=== PATIENT | female | born 1985 | race Caucasian/White ===

== ENCOUNTER → 2017-04-01 10:11 | Outpatient (CLI) | payer OTHER, MEDICAID, SELFPAY ==
[2017-04-01 11:26] LABS: Basophils % 0.2 % (0.1-2.0); Eosinophils # 0.2 K/mm3 (0.0-0.4); Eosinophils % 1.8 % (0.1-12.0); Hematocrit 38.8 % (37.0-47.0); Hemoglobin 12.3 g/dL (12.2-16.2); Lymphocytes # 3.3 K/mm3 (0.7-4.5); Lymphocytes % 30.4 K/mm3 (10-50); Mean Corpuscular HGB Conc 31.8 g/dL (31.8-35.4); Mean Corpuscular Hemoglobin 28.4 pg (27.0-31.2); Mean Corpuscular Volume 89.4 fl (81-99); Mean Platelet Volume 7.9 fl (7.4-10.4); Monocytes # 0.7 K/mm3 (0.1-1.0); Monocytes % 6.2 % (1.7-9.3); Neutrophils # 6.6 K/mm3 (1.8-7.8); Neutrophils % 61.4 % (37.0-80.0); Platelet Count 304 K/mm3 (142-424); Red Blood Count 4.34 M/mm3 (4.20-5.40); White Blood Count 10.8 K/mm3 (4.8-10.8)
[2017-04-02 08:27] LABS: HIV Screen 4th Generation wRfx Non Reactive (Non Reactive)
[2017-04-02 18:29] LABS: Hepatitis B Surface Antigen Negative (Negative); Hepatitis C Antibody <0.1 s/co ratio (0.0-0.9); Rapid Plasma Reagin Ab Titer Non Reactive (NonRea<1:1)
== END ==
PROVIDERS: Family Provider Nurse Practitioner Family; PCP Nurse Practitioner Family; Visit Provider Nurse Practitioner Obstetrics & Gynecology
DX: Z34.90 Encounter for supervision of normal pregnancy, unspecified, unspecified trimester (principal)
CPT/HCPCS: 36415; 85025; 86592; 86703; 86762; 86850; 87340; 87380; G0432

== ENCOUNTER → 2017-04-09 12:48 | Outpatient (CLI) | payer OTHER, MEDICAID, SELFPAY ==
--- NOTE | 2017-04-09 12:50 | US_ITS ---
US OB transvaginal CLINICAL INDICATION: Evaluate gestational age ITS.REASON: DATES ORDERING PHYSICIAN: Tom Oneill MD PATIENT AGE: 31 years COMPARISON: None FINDINGS: There is a single live intrauterine gestation with an average ultrasound age of 13 weeks 2 days. Estimated due date is 10/13/2017. Estimated weight is 72 g 90th percentile based on last menstrual period heart motion and body motion noted. Placenta is posterior. BPD 30 weeks 4 days, HC 13 weeks 1 day, abdominal recovers 13 weeks 4 days, FL 30 weeks 0 days. heart tones present at 136 BPM. [place]-rump length is 6.8 cm correlating to gestational age of 13 weeks 1 day Bilateral ovarian follicular cysts are present largest on the left at 2 cm which may be due to corpus luteum cyst IMPRESSION: Live intrauterine gestation at 13 weeks 2 days with estimated due date of 10/13/2017.
== END ==
PROVIDERS: Family Provider Nurse Practitioner Family; PCP Nurse Practitioner Family; Visit Provider Nurse Practitioner Obstetrics & Gynecology
DX: O26.841 Uterine size-date discrepancy, first trimester (principal)
CPT/HCPCS: 76830

== ENCOUNTER → 2017-05-28 13:27 | Outpatient (CLI) | payer BC, MEDICAID, SELFPAY ==
--- NOTE | 2017-05-28 13:36 | US_ITS ---
US OB /maternal detail: INDICATION: ITS.REASON: US OB Complete ORDERING PHYSICIAN: Tom Oneill MD PATIENT AGE: 31 years TECHNIQUE: ultrasound transabdominal scanning. COMPARISON: No previous relevant studies. FINDINGS: Single viable intrauterine gestation. cephalic position. Placenta: posterior placenta grade 1. There is average amount fluid. The cervix appears satisfactory. Closed and measuring 3 cm in length. Complete survey performed and was unremarkable on the submitted images as in PACS. No discrete anomalies identified on survey imaging by technologist. Active fetus. Three-vessel cord with satisfactory umbilical cord insertion. 4- chamber heart noted. Survey of brain & ventricles. Face and neck survey unremarkable. Diaphragm and chest views unremarkable. Abdomen: Both kidneys noted and unremarkable. Stomach noted and satisfactory. Spine: Survey of the spine satisfactory with no anomalies identified nor imaged. Both arms and legs noted. Amniotic Fluid: Adequate. Maternal adnexa: No significant findings. Measurements: Average ultrasound age 20w3d. Gestational Age 20w2d. Estimated due date by ultrasound age 0810/12/2017. Estimated weight 355 grams. This is 55th percentile based on last menstrual period BPD = 20w3d OFD = 20w5d HC = 19w6d AC = 20w4d FL = 20w4d Heart Rate = 139 Cerebellum = 19w3d Humerus = 21w4d HC/AC is 1.13 (1.09-1.26). CI is 77% (70-86%). FL/BPD is 71%. FL/AC is 22%. IMPRESSION: Live IUP which is in cephalic presentation with an average ultrasound age of 20 weeks and 3 days. Estimated due date is 10/12/2017. There has been adequate progression compared to the previous exam of 04/09/2017. No obvious anomalies. See above for detail
== END ==
PROVIDERS: Family Provider Nurse Practitioner Family; PCP Nurse Practitioner Family; Visit Provider Nurse Practitioner Obstetrics & Gynecology
DX: Z36.0 Encounter for antenatal screening for chromosomal anomalies (principal)
CPT/HCPCS: 76811

== ENCOUNTER 2017-07-12 08:53 | Outpatient (CLI) | payer BC, MEDICAID, SELFPAY ==
[2017-07-12 11:10] VITALS: BP 113/65; PULSE 82; RESP 18; TEMP 36.5
== END 2017-07-12 11:25 | disposition home or self-care (01) ==
LOC: LAB 08:53
PROVIDERS: Visit Provider Nurse Practitioner Obstetrics & Gynecology
DX: Z34.90 Encounter for supervision of normal pregnancy, unspecified, unspecified trimester (principal)
CPT/HCPCS: 36415; 96372; J2790

== ENCOUNTER → 2017-09-03 09:12 | Outpatient (CLI) | payer BC, MEDICAID, SELFPAY ==
--- NOTE | 2017-09-03 | US_ITS ---
US OB biophysical profile, US OB follow up, US SD Ratio umbilical artery: Indication: Large for gestational age, check position ITS.REASON: LGA and Check Position ORDERING PHYSICIAN: Tom Oneill MD PATIENT AGE: 32 years FINDINGS: There is a single live fetus present in the cephalic presentation. heart and body motion noted with an FHR 142 bpm . Average ultrasound age is 35 weeks 5 days. BPD 35 weeks 4 days. OFD 35 weeks 6 days. HC 35 weeks 2 days. Abdominal circumference 36 weeks 0 days. FL 35 weeks 6 days. All parameters correlate Estimated weight is 2762 g which is 85 percentile based on established due date of 10/13/2017 Amniotic fluid index: 14.6 Qualitative AFV: 2 breathing movements: 2 Gross body movements: 2 Tone: 2 Biophysical profile score: 88 Doppler evaluation of the umbilical artery: SD ratio: 2.4 Resistive index: 0.58 No obvious anomalies evident. Placenta: Posterior and grade 2. No evidence of previa Cervix: Appears closed and measures 3 cm IMPRESSION: Live IUP with an average ultrasound age of 35 weeks 5 days. All parameters correlate. The fetus is in cephalic presentation. Estimated weight is 2762 g which is 85th percentile. Physical profile 8 of 8 with unremarkable Doppler of the umbilical artery. Placenta is posterior and grade 2
== END ==
PROVIDERS: Family Provider Nurse Practitioner Family; PCP Nurse Practitioner Family; Visit Provider Nurse Practitioner Obstetrics & Gynecology
DX: O36.63X0 Maternal care for excessive fetal growth, third trimester, not applicable or unspecified (principal)
CPT/HCPCS: 76816; 76819; 76820

== ENCOUNTER → 2017-09-14 18:22 | Outpatient (REF) | payer BC, MEDICAID, SELFPAY | LOC: LAB 18:22 | PROVIDERS: Visit Provider Nurse Practitioner Obstetrics & Gynecology | DX: Z34.90 Encounter for supervision of normal pregnancy, unspecified, unspecified trimester (principal) | CPT/HCPCS: 86403 ==

== ENCOUNTER 2017-10-13 04:23 | Inpatient (IN) ==
[2017-10-13 05:38] LABS: Basophils % 0.1 % (0.1-2.0); Eosinophils # 0.2 K/mm3 (0.0-0.4); Eosinophils % 1.4 % (0.1-12.0); Hematocrit 33.6 % (37.0-47.0); Hemoglobin 11.1 g/dL (12.2-16.2); Lymphocytes # 2.7 K/mm3 (0.7-4.5); Lymphocytes % 22.9 K/mm3 (10-50); Mean Corpuscular HGB Conc 32.9 g/dL (31.8-35.4); Mean Corpuscular Hemoglobin 29.4 pg (27.0-31.2); Mean Corpuscular Volume 89.2 fl (81-99); Mean Platelet Volume 7.6 fl (7.4-10.4); Monocytes # 0.6 K/mm3 (0.1-1.0); Monocytes % 5.4 % (1.7-9.3); Neutrophils # 8.4 K/mm3 (1.8-7.8); Neutrophils % 70.3 % (37.0-80.0); Platelet Count 274 K/mm3 (142-424); Red Blood Count 3.77 M/mm3 (4.20-5.40); Red Cell Distribution Width 14.6 % (11.5-17.5); White Blood Count 11.9 K/mm3 (4.8-10.8)
--- NOTE | 2017-10-13 08:23 | History & Physical Report ---
OB - H&P: HPI Antepartum - History of Present Illness Chief complaint: Term History of present illness: She is a 32-year-old 2 para 1 who is 40 weeks gestational age. His been feeling unwell for the last couple of days and had decreased movement. As result of that we elected to deliver her at term. - History of Present Criteria for establishing EDC:: LMP confirmed by 1st trimester US care: good care Ultrasounds: normal 1st trimester US, normal mid trimester US Obstetrical complications: none Medical complications: none [facility] History I have reviewed the patient's past medical history: Yes Medical History: Denies:: Anxiety, Asthma, Depression Other Surgeries: No: Amputation: No Fractures: No - *Social History Smoking Status: Never smoker Alcohol Intake: never Substance Use Type: denies use - Psychiatric History Pschychiatric History:: Denies:: Anxiety, Depression *Family Hx:: Cancer, Diabetes, Hypertension, Hyperlipidemia, Heart Attack, Stroke, Kidney Disease Para: 1 Review of Systems - Review of Systems Review of systems:: pertinent systems reviewed and negative unless documented below Meds Home Medications Medication Instructions Recorded Confirmed Type 1 tab PO DAILY 04/01/17 10/13/17 History vitamin,calcium,svmrogyq-hjwh-kofvm acid tablet Ferrous Sulfate 325 mg PO DAILY 10/13/17 10/13/17 History Allergies Allergy/AdvReac Type Severity Reaction Status Date / Time No Known Allergies Allergy Verified 10/12/17 16:25 OB - H&P: Exam - Physical Exam Vital signs: Temp Pulse Resp BP Pulse Ox 98.2 F 70 18 132/67 98 10/13/17 05:35 10/13/17 05:35 10/13/17 05:35 10/13/17 05:35 10/13/17 05:35 - Constitutional no acute distress - Routine HEENT Exam Head: Present: normocephalic Eye: Present: EOMI, PERRL ENT: Present: mucous membranes moist - Routine Neck Exam Present: supple, full ROM - Routine Respiratory Exam Absent: accessory muscle use (good air entry bilaterally), respiratory distress , wheezes, crackles - Routine Cardiovascular Exam Present: RRR. Absent: murmur - Routine Abdominal Exam Present: soft, normoactive bowel sounds. Absent: tenderness, distended, guarding - Routine Rectal Exam Patient deferred: visual exam, digital exam - Routine Exam Patient deferred: external exam, groin exam, perineal exam - Routine Extremities Exam Present: full ROM. Absent: cyanosis, edema - Routine Skin Exam Present: intact. Absent: cyanosis - Routine Neurological Exam Present: alert, oriented X3 - Routine Psychiatric Exam Present: normal affect OB - Results - Labs Labs: Short CBC 10/13/17 Range/Units 05:30 WBC 11.9 H (4.8-10.8) K/mm3 Hgb 11.1 L (12.2-16.2) g/dL Hct 33.6 L (37.0-47.0) % Plt Count 274 (142-424) K/mm3 OB - A/P Antepartum (1) Normal delivery at term Current visit: Yes Status: Acute (2) Decreased movement affecting management of mother, antepartum Current visit: Yes Status: Acute (3) Obesity, morbid, BMI 40.0-49.9 Current visit: No Status: Chronic - Additional Plan Planning to breastfeed?: Yes Plan: induction Additional Information:: She is now 40 weeks gestational age and as result of that we have elected to induce her labor since she has decreased movement. We will start oxytocin and then ruptured her membranes. She did have an ultrasound this morning that showed that the fetus was in the cephalic presentation.
--- NOTE | 2017-10-13 09:22 | Progress Note ---
Labor Note - Subjective: Date: 10/13/17 Time: 08:45 regular contraction - Objective: NST:: Reactive Contractions:: every 2-3 minutes Cervical Dilation:: 2-3 Effacement:: 75% Station: -3 Membranes: artificially ruptured - Fetus: Monitoring?: Yes monitoring type:: Internal and External Comment:: I inserted an IUPC - Assessment: Labor progressing?: Yes Cephalopelvic disproportion?: No Patient Problems: All Active Problems Normal delivery at term (Acute) Decreased movement affecting management of mother, antepartum (Acute) Obesity, morbid, BMI 40.0-49.9 (Chronic) Rh negative status during in third trimester, antepartum (Acute) Large for dates fetus affecting in third trimester, antepartum (Acute) (Acute) - Plan: Anesthesia for epidural?: No Continue to labor down?: Yes Plan for ?: No Continue to monitor?: Yes Start pushing?: No
--- NOTE | 2017-10-13 11:55 | Progress Note ---
[facility] Anesthesia Checklist - Patient Identification Patient Identification: Arm Band, Verbal (Name & ) - Structural Data Admitted From: Inpatient Planned Operative Procedure/s: labor epidural Consent for Planned Operative Procedure(s) Verified: Yes Verified Documents: Surgical Consent, History and Physical - Additional verifications Patient : Yes Anesthesia Reactions: No Hx Blood Transfusions: No Blood Transfusion Reaction: No Cephalosporin Allergy: No Previous Colonoscopy: No - Cardiovascular Assessment Heart Sounds: S1 & S2 Pulse Strength: Baseline Pulse Rhythm: Regular Peripheral Edema: No - Airway Assessment C-Spine Mobility Assessed: Yes TMJ Mobility Assessed: Yes Dentition: Good Dentition - Neurological Assessment Level of Consciousness: Awake, Alert, Appropriate Hx Seizures: No Numbness or tingling in extremities: No - Anesthesia Plan Anesthesia Risk discussed: Yes Anesthesia Plan: Verified ASA Class: II Anesthesia Type: Epidural [facility] Anesthesia HX I have reviewed the patient's past medical history: Yes Medical History: Denies:: Anxiety, Asthma, Depression Other Surgeries: Yes: No Previous Surgery. No: Amputation: No Fractures: No *Family Hx:: Cancer, Diabetes, Hypertension, Hyperlipidemia, Heart Attack, Stroke, Kidney Disease
[2017-10-13 12:29] LABS: Microscopic, Urine URINE MICROSCOPIC (MICROSCOPIC)
[2017-10-13 12:41] LABS: Appearance,Urine CLEAR (Clear); Bilirubin,Urine Negative (Negative); Blood, Urine Negative (Negative); Color,Urine YELLOW (Yellow); Glucose,Urine (UA) Negative (Negative); Ketones,Urine Negative (Negative); Leukocyte Esterase,Urine Negative (Negative); Protein,Urine Negative (Negative); Specific Gravity, Urine 1.015 (1.005-1.030); Urobilinogen,Urine 0.2 EU/dl (0.2)
[2017-10-13 13:00] LABS: Bacteria,Urine Trace /lpf
--- NOTE | 2017-10-13 13:37 | Progress Note ---
Labor Note - Subjective: Date: 10/13/17 Time: 11:30 regular contraction - Objective: NST:: Reactive Contractions:: every 2-3 minutes Cervical Dilation:: 3 Effacement:: 80% Station: -3 Membranes: artificially ruptured - Fetus: Monitoring?: Yes monitoring type:: Internal Comment:: I put on a scalp clip - Assessment: Labor progressing?: No Cephalopelvic disproportion?: No Patient Problems: All Active Problems Normal delivery at term (Acute) Decreased movement affecting management of mother, antepartum (Acute) Obesity, morbid, BMI 40.0-49.9 (Chronic) Rh negative status during in third trimester, antepartum (Acute) Large for dates fetus affecting in third trimester, antepartum (Acute) (Acute) - Plan: Anesthesia for epidural?: Yes Continue to labor down?: Yes Plan for ?: No Continue to monitor?: Yes Start pushing?: No
--- NOTE | 2017-10-13 13:38 | Progress Note ---
Labor Note - Subjective: Date: 10/13/17 Time: 13:37 regular contraction - Objective: Contractions:: every 2-3 minutes Cervical Dilation:: 3 Effacement:: 80% Station: -3 Membranes: artificially ruptured - Fetus: Monitoring?: Yes monitoring type:: Internal - Assessment: Labor progressing?: No Cephalopelvic disproportion?: Yes Patient Problems: All Active Problems Normal delivery at term (Acute) Decreased movement affecting management of mother, antepartum (Acute) Obesity, morbid, BMI 40.0-49.9 (Chronic) Rh negative status during in third trimester, antepartum (Acute) Large for dates fetus affecting in third trimester, antepartum (Acute) (Acute) - Plan: Anesthesia for epidural?: Yes Continue to labor down?: Yes Plan for ?: Yes Continue to monitor?: Yes Start pushing?: No Comment:: She really has not progressed much all day. We will see how she does over the next few hours but if she does not change her cervix we will plan for a C- section.
--- NOTE | 2017-10-13 17:19 | Progress Note ---
Labor Note - Subjective: Date: 10/13/17 Time: 17:18 regular contraction - Objective: NST:: Reactive Contractions:: every 2-3 minutes Cervical Dilation:: 5 Effacement:: 100% Station: -2 Membranes: artificially ruptured - Fetus: Monitoring?: Yes monitoring type:: Internal - Assessment: Labor progressing?: Yes Cephalopelvic disproportion?: No Patient Problems: All Active Problems Normal delivery at term (Acute) Decreased movement affecting management of mother, antepartum (Acute) Obesity, morbid, BMI 40.0-49.9 (Chronic) Rh negative status during in third trimester, antepartum (Acute) Large for dates fetus affecting in third trimester, antepartum (Acute) (Acute) - Plan: Anesthesia for epidural?: Yes Continue to labor down?: Yes Plan for ?: No Continue to monitor?: Yes Start pushing?: No Comment:: She seems to have progressed over the afternoon from 3-5 cm the baby's head is comedown. She is having regular contractions. The baby seems to be tolerating labor well. We will continue on.
--- NOTE | 2017-10-13 20:12 | Procedure Note ---
- Delivery Note Delivery Date:: 10/13/17 Delivery Time:: 19:56 Anesthesia Type: Epidural Was labor medically induced?: Yes Induction method: per pitocin protocol Gestational age (weeks): 40 Infant delivered prior to 39 weeks?: No Infant Gender: Female at 1 minute: 6 at 5 minutes: 9 AF:: Clear fluid Delivery Procedure:: She is a 32-year-old 2 para 1 who is 40 weeks gestational age. She had decreased movement and since she was term we elected to perform an induction of labor. She was started on IV oxytocin and had her membranes ruptured. Under labor epidural she progressed to full dilation and delivered spontaneously a live born female child at 7:56 PM in the evening of October 13, 2017. On deliver the head it was noted there was a loose nuchal cord 2. These cords were easily reduced. This was followed by deliver the anterior shoulder and the rest of the infant's body atraumatically. The oropharynx and nasopharynx were bulb suctioned. The baby cried spontaneously. We allow the cord to continue to pulsate for approximately 1 minute and then doubly clamped the cord and cut it. The baby was then placed on the mother's abdomen for further care. The nurses assigned Apgars of 6 at 1 minute and 9 at 5 minutes. We then obtained cord blood as well as cord pH. Using gentle traction the cord and countertraction on the fundus I was able to easily deliver the placenta intact. He had a normal three-vessel cord. There were no vaginal or perineal lacerations. She has O Rh- blood, she is rubella immune and was group B Streptococcus negative. Her medical laboratory scientist is Dr. Sosa. Estimated blood loss was approximately 400 cc. Placental Delivery Description: Spontaneous
[2017-10-14 07:28] LABS: Hematocrit 31.6 % (37.0-47.0); Hemoglobin 10.4 g/dL (12.2-16.2)
--- NOTE | 2017-10-14 08:06 | Progress Note ---
Internal Medicine - PN: Subj *Date: 10/14/17 *Time: 08:05 Interval history: She continues to do well this morning. She is eating and drinking and ambulating. She is bottlefeeding. Her lochia is normal. Exam Vital signs and Labs for Last 24 Hours: Temp Pulse Resp BP Pulse Ox 98.2 F 70 18 132/67 98 10/13/17 05:35 10/13/17 05:35 10/13/17 05:35 10/13/17 05:35 10/13/17 05:35 Laboratory Results - last 24 hr 10/13/17 12:20: Urine Color Yellow, Urine Appearance Clear, Urine pH 7.0, Ur Specific [place] 1.015, Urine Protein Negative, Urine Glucose (UA) Negative, Urine Ketones Negative, Urine Blood Negative, Urine Nitrate Negative, Urine Bilirubin Negative, Urine Urobilinogen 0.2, Ur Leukocyte Esterase Negative, Urine RBC None, Urine WBC None, Ur Squamous Epith Cells 5-10, Urine Bacteria Trace 10/13/17 20:10: Cord ABG pH 7.37 10/14/17 07:18: Hgb 10.4 L, Hct 31.6 L I & O for Last 24 hours: Intake & Output 10/11/17 10/12/17 10/13/17 10/14/17 11:59 11:59 11:59 11:59 Weight 263 lb - Constitutional no acute distress Assessment and Plan (1) Normal delivery at term Current visit: Yes Status: Acute Category: Medical Code(s): O80 - Encounter for full-term uncomplicated delivery (2) Decreased movement affecting management of mother, antepartum Current visit: Yes Status: Acute Category: Medical Code(s): O36.8190 - Decreased movements, unspecified trimester, not applicable or unspecified (3) Obesity, morbid, BMI 40.0-49.9 Current visit: No Status: Chronic Category: Medical Code(s): E66.01 - Morbid (severe) obesity due to excess calories - Assessment and plan all Dx Assessment and Plan for all problems:: She is doing well this morning . We will plan to send her home tomorrow.
--- NOTE | 2017-10-14 08:19 | Discharge Summary ---
General - General Admission date:: 10/13/17 Discharge date: 10/15/17 HPI HPI: She is a 32-year-old 2 now para 2 who was she was having some decreased movement. Since she was due we elected to admit her for induction of labor. Hospital Course Hospital Course: She was started on IV oxytocin and progressed to full dilation under labor epidural. She delivered spontaneously a live born female child at 7:56 PM in the evening of October 14, 2017. The baby had Apgars of 6 at 1 minute and 9 at 5 minutes. PH was 7.37. She weighed 8 lbs. 7 oz. She was 20 inches long. She has done well and has remained afebrile throughout her hospitalization. She is eating and drinking and ambulating. She is bottlefeeding. Her lochia is normal. She has O Rh- blood and was group B Streptococcus negative. If her baby is Rh+ she will receive RhoGam. She is discharged home to follow-up with me in approximately 2 weeks time. She is just taking xdig-rbi-rbtfimk analgesics for discomfort. She will continue with her vitamins. Objective Vital signs: Temp Pulse Resp BP Pulse Ox 98.2 F 70 18 132/67 98 10/13/17 05:35 10/13/17 05:35 10/13/17 05:35 10/13/17 05:35 10/13/17 05:35 no acute distress Results Labs on day of discharge: Labs from last 24 hours 10/14/17 10/13/17 10/13/17 07:18 20:10 12:20 Hgb 10.4 L Hct 31.6 L Cord ABG pH 7.37 Urine Color Yellow Urine Appearance Clear Urine pH 7.0 Ur Specific [place] 1.015 Urine Protein Negative Urine Glucose (UA) Negative Urine Ketones Negative Urine Blood Negative Urine Nitrate Negative Urine Bilirubin Negative Urine Urobilinogen 0.2 Ur Leukocyte Esterase Negative Urine RBC None Urine WBC None Ur Squamous Epith Cells 5-10 Urine Bacteria Trace DS: Diagnosis - Discharge Diagnosis (1) Normal delivery at term Status: Acute (2) Decreased movement affecting management of mother, antepartum Status: Acute (3) Obesity, morbid, BMI 40.0-49.9 Status: Chronic Discharge Plan - Patient Discharge Instructions ACTIVITY: No heavy lifting DIET: continue same diet - Follow up Plan Disposition: Home, Self-Fdc Medications: Home Medications Medication Instructions Recorded Confirmed Type 1 tab PO DAILY 04/01/17 10/13/17 History vitamin,calcium,ykrysysx-vnwu-lrumy acid tablet Ferrous Sulfate 325 mg PO DAILY 10/13/17 10/13/17 History Prescriptions/Medication Reconciliation: Continue vitamin,calcium,caxsogty-gsgj-xjgwv acid tablet 1 tab PO DAILY Ferrous Sulfate 325 mg PO DAILY
--- NOTE | 2017-10-14 09:42 | Operative Note ---
Date of procedure: 10/14/17 Surgeon:: Nadia Pandya MD
[2017-10-14 21:13] VITALS: BP 112/80
--- NOTE | 2017-10-15 13:03 | Progress Note ---
Internal Medicine - PN: Subj *Date: 10/15/17 *Time: 11:52 Interval history: No new complaints Ready for discharge Ambulating, voiding and tolerating regular diet Exam Vital signs and Labs for Last 24 Hours: Temp Pulse Resp BP Pulse Ox 97.7 F 63 18 112/80 100 10/14/17 20:05 10/14/17 20:05 10/14/17 20:05 10/14/17 20:05 10/14/17 20:05 I & O for Last 24 hours: Intake & Output 10/13/17 10/14/17 10/15/17 10/16/17 11:59 11:59 11:59 11:59 Weight 263 lb - Constitutional no acute distress - *Routine Respiratory Exam Absent: respiratory distress - *Routine Cardiovascular Exam Absent: tachycardia - *Routine Abdominal Exam Present: soft. Absent: tenderness, distended - Routine Psychiatric Exam Absent: depressed, anxious Assessment and Plan (1) Normal delivery at term Current visit: Yes Status: Acute Category: Medical Code(s): O80 - Encounter for full-term uncomplicated delivery (2) Decreased movement affecting management of mother, antepartum Current visit: Yes Status: Acute Category: Medical Code(s): O36.8190 - Decreased movements, unspecified trimester, not applicable or unspecified (3) Obesity, morbid, BMI 40.0-49.9 Current visit: No Status: Chronic Category: Medical Code(s): E66.01 - Morbid (severe) obesity due to excess calories - Assessment and plan all Dx Assessment and Plan for all problems:: discharge home today F/u office [address] Oneill
== END 2017-10-15 12:40 | disposition home or self-care (01) ==
LOC: OB 04:58
PROVIDERS: ADMIT Nurse Practitioner Obstetrics & Gynecology; ATTEND Nurse Practitioner Obstetrics & Gynecology

== ENCOUNTER 2021-04-06 11:13 | Emergency (ER) | payer BC, MEDICAID, SELFPAY ==
[2021-04-06 11:34] VITALS: BP 140/99; PULSE 88; RESP 16; TEMP 36.8; O2SAT 97; BMI 41.5
[2021-04-06 11:42] LABS: UTC Strep Screen (Rapid) Negative (Negative)
--- NOTE | 2021-04-06 11:57 | HMH.EDUTC ---
[facility] Disposition Clinical Impression: Viral syndrome, Exposure to COVID-19 virus, Bronchitis Disposition: Home, Self-Care Condition on Discharge: Good Instructions: Preventing the Spread of Coronavirus Discharge Instructions, DI for COVID-19 (Suspected or Confirmed ), DI for Acute Bronchitis, Acute Bronchitis Additional Instructions: Drink plenty of fluids. Take tylenol or ibuprofen for pain or fever. Take the medications as directed. Follow up with your regular doctor. GO TO THE ER FOR ANY WORSENING SYMPTOMS Quarantine until you know the results of your covid-19 test. Notify your school or workplace of your results and follow their instructions regarding return to work/school. Prescriptions: Brompheniramine/Pseudoephed/Dm [Bromfed Dm Cough Syrup] 5 ml PO Q6HP PRN #240 ml PRN Reason: Cough Transmission Status: Pending to [facility] Ondansetron [Zofran 4mg ODT] 4 mg PO Q8HP PRN #20 tab PRN Reason: Nausea Transmission Status: Pending to [facility] methylPREDNISolone [Medrol] 4 mg PO DIRECTED 6 Days #21 packet Transmission Status: Pending to [facility] Azithromycin [Z-Jose 250mg Tab*] 250 mg PO UD DOSE PK #6 tab Transmission Status: Pending to [facility] Referrals: Tamika Napier APRN [Primary Care Provider] - Forms: Work/School Release Time of Disposition: 12:32 Medical Decision Making - Medical Records Medical records reviewed: No: I reviewed the patient's medical records. - Hieu Inquiry Pt receiving controlled substance: No Vital Signs: 04/06/21 11:34 Temperature 98.3 F Temperature Source Oral Pulse Rate [Left] 88 Respiratory Rate 16 Blood Pressure [Right Arm] 140/99 H Blood Pressure Mean [Right Arm] 112 02 Sat by Pulse Oximetry 97 - Lab Data Lab results reviewed: Yes: I reviewed the patient's lab results. Lab Results 04/06/21 11:31: Strep Scn Rapid Clinic Negative Orders (Tests/Meds): ORDERS Category Date Time Status Full Resp Panel w/COVID ([facility]) Routine Lab 04/06/21 12:27 Ordered Strep Screen Confirmation Stat Micro 04/06/21 11:31 Received [facility] HPI - General Stated complaint: sore throat,cough,headache, etc Time Seen by Provider: 04/06/21 11:57 Description of Symptoms (Recalled from Triage Doc. by RN): pt c/o a sore throat, cough and WEST x3 days. HEENT Symptoms (Recalled from RN notes): Yes (sore throat and WEST) Resp Symptoms (Recalled from RN notes): Yes (cough) Skin Symptoms (Recalled from RN notes): No MS Symptoms (Recalled from RN notes): No Functional Status (Recalled from RN notes): wnl - History of Present Illness Provider Complaint: She states that for the past 3 days she has had sore throat, sinus congestion, nonproductive cough and she has felt bad. She works with preschool students. She has been fully vaccinated against covid-19. - Related Data Home Medications Medication Instructions Recorded Confirmed hydrocodone 7.5 mg-acetaminophen PO 4 Days #20 tab 12/06/17 12/06/17 325 mg tablet Previous Rx's Medication Instructions Recorded Azithromycin [Z-Jose 250mg Tab*] 250 mg PO UD DOSE PK #6 tab 04/06/21 Brompheniramine/Pseudoephed/Dm 5 ml PO Q6HP PRN #240 ml 04/06/21 [Bromfed Dm Cough Syrup] Ondansetron [Zofran 4mg ODT] 4 mg PO Q8HP PRN #20 tab 04/06/21 methylPREDNISolone [Medrol] 4 mg PO DIRECTED 6 Days #21 04/06/21 packet Allergies Allergy/AdvReac Type Severity Reaction Status Date / Time No Known Allergies Allergy Verified 12/06/17 14:08 - Worker's Comp Is this a Worker's Comp case?: No [facility] History - Hepatitis A Screen Drug use history?: No High risk sexual behaviors?: No History of sexually transmitted infection?: No Currently employed?: No Childcare worker?: No Do you have indoor plumbing?: Yes Do you have electricity?: Yes Attestation statement:: This patient has been screened for Hepatitis A risk factors. I have reviewed th
[2021-04-06 12:32] VITALS: BP 140/99; PULSE 88; RESP 16; TEMP 36.8
[2021-04-06 14:03] LABS: Adenovirus,PCR Not Detected (NotDetected); Bordetella Pertussis Not Detected (NotDetected); Chlamydophila Pneumoniae, PCR Not Detected (NotDetected); Coronavirus 19, PCR Not Detected (NotDetected); Coronavirus 229E Not Detected (NotDetected); Coronavirus NL63 Not Detected (NotDetected); Coronovirus HKU1,PCR Not Detected (NotDetected); Human Metapneumovirus Not Detected (NotDetected); Influenza A, PCR Not Detected (NotDetected); Influenza AH1, 2009 Not Detected (NotDetected); Influenza AH1, PCR Not Detected (NotDetected); Influenza AH3,PCR Not Detected (NotDetected); Influenza B, PCR Not Detected (NotDetected); Mycoplasma Pneumoniae, PCR Not Detected (NotDetected); Parainfluenza 1, PCR Not Detected (NotDetected); Parainfluenza 2, PCR Not Detected (NotDetected); Parainfluenza 3, PCR Not Detected (NotDetected); Parainfluenza 4, PCR Not Detected (NotDetected); Respiratory Syncytial Virus Not Detected (NotDetected); Rhinovirus/Enterovirus Not Detected (NotDetected)
[2021-04-06 15:35] LABS: Coronavirus OC43 Detected (NotDetected)
== END 2021-04-06 12:46 | disposition home or self-care (01) ==
PROVIDERS: Emergency Provider Nurse Practitioner Family; PCP Nurse Practitioner
DX: B34.2 Coronavirus infection, unspecified (principal); J20.9 Acute bronchitis, unspecified
CPT/HCPCS: 87581; 87632; 87798; 87880; 99203; C9803; G0463; U0003; U0005

== ENCOUNTER 2022-12-18 20:22 | Emergency (ER) | payer BC, MEDICAID, SELFPAY ==
[2022-12-18 20:31] VITALS: BP 167/92; PULSE 90; RESP 18; TEMP 36.7; O2SAT 97; BMI 39.1
[2022-12-18 20:36] VITALS: BP 167/92; PULSE 90
--- NOTE | 2022-12-18 20:54 | HMH.EDGENADL ---
Discharge Plan Disposition Patient Disposition: Home, Self-Care Prescriptions Prescriptions: New cephalexin 500 mg capsule 1,000 mg PO BID 5 Days Qty: 20 0RF Referrals Follow up/Referrals: Julia Napier PA [Primary Care Provider] - See instructions Activity Restrictions/Add. Instructions Additional Instructions/Restrictions: Call your family doctor to establish care for this visit to the emergency department and schedule follow-up within 48 hours to ensure improvement. If you have any worsening of your condition or any other concerning signs or symptoms, return to the emergency department or your primary care doctor for further evaluation. Keflex twice daily for 5 days Clinical Impressions Clinical Impression: Cellulitis of right upper arm Discharge ED Provider: Sachin Benavides General Adult HPI General Chief complaint: Allergic Reaction Stated complaint: right arm rash and swelling Time Seen by Provider: 12/18/22 20:33 Mode of Arrival: Ambulatory Source of Information: Patient Limitations: No Limitations Description of Symptoms (Recalled from ER Triage Doc. by RN): potentially got bit by unknown insect two days ago on right upper arm, noticed a rash that is warm to touch, itching and burning, states the rash keeps spreading down arm History of Present Illness HPI narrative: 37-year-old female no relevant medical history presenting with arm redness and swelling. Patient states that 2 days prior to arrival, she sustained a small cut to the back of her right upper arm. Does not remember the trauma to, does not know if it was a bug bite or not. Since that time, she has been taking Benadryl and putting Benadryl cream on top of it. It has continued to spread, turned red and warm. No fevers or chills, nausea or vomiting, axillary swelling, lymphadenopathy, chest pain, shortness of breath, or any other concerns. No history of DVT or PE or any other risk factors. Related Data Previous Rx's Medication Instructions Recorded cephalexin 500 mg capsule 1,000 mg PO BID 5 days #20 caps 12/18/22 Allergies Allergy/AdvReac Type Severity Reaction Status Date / Time No Known Allergies Allergy Verified 12/06/17 14:08 [facility] Disclaimer: The information contained in this section may have been updated after the patient was seen, as this information can be updated by other users. Social History Smoking Status: Never smoker alcohol intake: never substance use type: denies use current occupational status: employed Travel in the last 8 weeks: None household members: spouse housing: house current occupation: teachers aid current occupational exposures/hazards: Yes caffeine: Yes ROS Obtained: Yes All systems reviewed & no additional complaints except as documented Physical Exam General General appearance: alert and in no apparent distress Head Head exam: atraumatic and normocephalic Eye Eye exam: Present normal appearance, PERRL and EOMI ENT ENT exam: Present mucous membranes moist Neck Neck exam: Present normal inspection, full ROM and trachea midline Respiratory Respiratory exam: Absent respiratory distress, wheezes, stridor, accessory muscle use or prolonged expiratory phase Cardiovascular Cardiovascular exam: Present normal rhythm Abdominal Exam Abdominal exam: Present soft; Absent distention, tenderness, guarding, rebound, rigidity or normal bowel sounds Extremities Exam Extremities exam: Absent edema Neurological Exam Neurological exam: Present alert, oriented X3, CN II-XII intact and normal gait; Absent motor sensory deficit Skin Skin exam: Present warm, dry, rash and erythema (Rash, induration, erythema starting at posterior aspect of right humerus and spreading distally/medially. Mildly tender to the touch. No evidence of lymphadenopathy of the axilla); Absent diaphoresis Medical Decision Making Medical Records Medical records reviewed: Yes I reviewed the patient's medi
[2022-12-18 21:09] VITALS: BP 167/98; PULSE 85; RESP 16; TEMP 36.9; O2SAT 97
== END 2022-12-18 21:12 | disposition home or self-care (01) ==
PROVIDERS: Emergency Provider Emergency Medicine; PCP Physician Assistant
DX: L03.113 Cellulitis of right upper limb (principal)
CPT/HCPCS: 99283

== ENCOUNTER 2023-02-19 21:07 | Emergency (ER) | payer BC, MEDICAID, SELFPAY ==
[2023-02-19 21:16] VITALS: BP 166/90; PULSE 76; RESP 16; TEMP 36.6; O2SAT 96; BMI 40.7
--- NOTE | 2023-02-19 21:21 | PC.NURSE ---
urine collected and sent to lab
[2023-02-19 21:27] LABS: Microscopic, Urine URINE MICROSCOPIC (MICROSCOPIC)
--- NOTE | 2023-02-19 21:27 | HMH.EDGENADL ---
Discharge Plan Disposition Patient Disposition: Home, Self-Care Chief Complaint: Abdominal Pain Prescriptions Prescriptions: No Action No Known Home Medications Referrals Follow up/Referrals: Tamika Napier APRN [Primary Care Provider] - See instructions Activity Restrictions/Add. Instructions Additional Instructions/Restrictions: Call your family doctor to establish care for this visit to the emergency department and schedule follow-up within 48 hours to ensure improvement. If you have any worsening of your condition or any other concerning signs or symptoms, return to the emergency department or your primary care doctor for further evaluation. Take Tylenol 1000 mg every 6 hours (4 times daily) and ibuprofen 400 mg every 6 hours (4 times daily) as needed with food and water to prevent GI upset and kidney damage. Clinical Impressions Clinical Impression: Abdominal pain Qualifiers: Abdominal location: right upper quadrant Qualified Code(s): R10.11 - Right upper quadrant pain Instructions Patient Instructions: DI for Acute Abdominal Pain Discharge ED Provider: Sachin Benavides General Adult HPI General Chief complaint: Abdominal Pain Stated complaint: abd pain Time Seen by Provider: 02/19/23 21:10 Mode of Arrival: Family Vehicle Source of Information: Patient Limitations: No Limitations Description of Symptoms (Recalled from ER Triage Doc. by RN): 37 yo female presents with CC worsening right flank pain that was present upon awakening this morning and since has began radiating through her right upper quadrant and increasing in intensity throughout the day. specifically more so in the last 3 hours. Patient denies n/v/d. Denies constipation. Denies dysuria. LMP: 3 weeks ago. Denies vaginal dc, new sexual partners, recent antibiotic use/new meds. Afebrile. Ambulatory. A&ox4. History of Present Illness HPI narrative: 37-year-old female history of tubal ligation presenting with abdominal pain. Started today, 02/19 when she woke up from sleep. Has had crescendo pain since that time. It is stabbing, radiates from right upper quadrant to right side of back. Pain associated with nausea without vomiting. Patient has not had constipation, diarrhea, fevers or chills, urinary symptoms, overlying skin changes, or any other concerns. Has taken Tylenol and Motrin. Pain is nonpositional. Related Data Home Medications Medication Instructions Recorded Confirmed No Known Home Medications 02/19/23 02/19/23 Allergies Allergy/AdvReac Type Severity Reaction Status Date / Time No Known Allergies Allergy Verified 12/06/17 14:08 [facility] Disclaimer: The information contained in this section may have been updated after the patient was seen, as this information can be updated by other users. Social History Smoking Status: Unknown if ever smoked alcohol intake: never substance use type: denies use current occupational status: employed Travel in the last 8 weeks: None household members: spouse housing: house current occupation: teachers aid current occupational exposures/hazards: Yes caffeine: Yes ROS Obtained: Yes All systems reviewed & no additional complaints except as documented Physical Exam General General appearance: alert and in no apparent distress Head Head exam: atraumatic and normocephalic Eye Eye exam: Present normal appearance, PERRL and EOMI ENT ENT exam: Present mucous membranes moist Neck Neck exam: Present normal inspection, full ROM and trachea midline Respiratory Respiratory exam: Absent respiratory distress, wheezes, stridor, accessory muscle use or prolonged expiratory phase Cardiovascular Cardiovascular exam: Present normal rhythm Abdominal Exam Abdominal exam: Present soft, tenderness and Rodriguez's sign; Absent distention, guarding, rebound, rigidity or normal bowel sounds Abdominal tenderness: Present RUQ Extremities Exam Extremities exam: Absent edema Ne
[2023-02-19 21:28] LABS: Appearance,Urine CLEAR (Clear); Bilirubin,Urine Negative (Negative); Blood, Urine 1+ (Negative); Color,Urine YELLOW (Yellow); Glucose,Urine (UA) TRACE (Negative); Ketones,Urine Negative (Negative); Leukocyte Esterase,Urine Negative (Negative); Nitrate,Urine Negative (Negative); PH,Urine 6.5 (5.0-8.5); Protein,Urine TRACE (Negative); Specific Gravity, Urine >= 1.030 (1.005-1.030)
[2023-02-19 21:29] LABS: Urine Pregnancy, HCG Qual. Negative (Negative)
[2023-02-19 21:31] LABS: Basophils # 0.1 K/mm3 (0-0.2); Basophils % 0.7 % (0.1-2.0); Eosinophils # 0.4 K/mm3 (0.0-0.4); Eosinophils % 3.2 % (0.1-12.0); Hematocrit 37.3 % (37.0-47.0); Lymphocytes # 4.4 K/mm3 (0.7-4.5); Lymphocytes % 34.1 % (10-50); Mean Corpuscular HGB Conc 32.2 g/dL (31.8-35.4); Mean Corpuscular Hemoglobin 26.1 pg (27.0-31.2); Mean Platelet Volume 8.3 fl (7.4-10.4); Monocytes # 0.7 K/mm3 (0.1-1.0); Monocytes % 5.4 % (1.7-9.3); Neutrophils # 7.2 K/mm3 (1.8-7.8); Neutrophils % 56.5 % (37.0-80.0); Platelet Count 384 K/mm3 (142-424); Red Cell Distribution Width 15.8 % (11.5-17.5); White Blood Count 12.7 K/mm3 (4.8-10.8)
[2023-02-19 21:34] LABS: Chloride 106 mmol/L (98-107); Sodium 140 mmol/L (136-145)
[2023-02-19 21:35] LABS: Potassium 3.3 mmoL/L (3.5-5.1)
[2023-02-19 21:37] LABS: Alanine Aminotransferase 51 U/L (12-78); Albumin Level 4.4 g/dl (3.5-5.0); Albumin/Globulin Ratio 1.3 (1.1-1.8); Alkaline Phosphatase 76 U/L (38-126); Anion Gap 8.3 mEq/L (5-15); Aspartate Amino Transferase 63 U/L (14-36); Bilirubin,Total 0.4 mg/dl (0.2-1.3); Blood Urea Nitrogen 16 mg/dl (7-17); Calcium 8.4 mg/dl (8.4-10.2); Carbon Dioxide 29 mmol/L (22.0-30.0); Creatinine Clearance Estimated 161 mL/min (50-200); Estimated Glomerular Filt Rate 71 ml/min (>60); GFR (African American) 86 ML/MIN (>60); Globulin 3.5 g/dL (1.3-3.2); Glucose 104 mg/dl (74-100); Lipase 75 U/L (23-300); Total Protein,Serum 7.9 g/dl (6.3-8.2)
[2023-02-19 21:38] LABS: Lactic Acid 0.8 mmol/L (0.7-2.1)
[2023-02-19 21:42] LABS: Mucus,Urine 1+ /lpf
[2023-02-19 21:49] VITALS: BP 136/84; PULSE 82; RESP 20; O2SAT 97
--- NOTE | 2023-02-19 21:53 | PC.NURSE ---
rounded on patient, pillow given and lights turned down
--- NOTE | 2023-02-19 22:06 | CT_ITS ---
PROCEDURE INFORMATION: Exam: CT Abdomen And Pelvis With Contrast Exam date and time: 02/19/2023 10:19 PM Age: 37 years old Clinical indication: Abdominal pain; Additional info: Ruq pain radiating to flank, difficult ultrasound TECHNIQUE: Imaging protocol: Computed tomography of the abdomen and pelvis with contrast. Radiation optimization: All CT scans at this facility use at least one of these dose optimization techniques: automated exposure control; mA and/or kV adjustment per patient size (includes targeted exams where dose is matched to clinical indication); or iterative reconstruction. Contrast material: ISOVUE; Contrast volume: 75 ml; Contrast route: IV; REPORTING DATA: Count of CT and Cardiac NM exams in prior 12 months: This patient has received 0 known CTs and 0 known cardiac nuclear medicine studies in the 12 months prior to the current study. COMPARISON: 1. OBLM US OB limited position 10/13/2017 6:12 AM 2. OBBIO US OB biophysical profile 09/03/2017 9:16 AM 3. OBFEMAT US OB /maternal detail 05/28/2017 1:59 PM FINDINGS: Liver: There is diffuse fatty infiltration throughout the liver. Gallbladder and bile ducts: The gallbladder is collapsed. Pancreas: The pancreas is of normal size and morphology, without evidence of masses, cysts, or calcifications. The pancreatic duct is not dilated. Spleen: The spleen is normal in size and attenuation. No splenic masses or cysts are observed. Adrenal glands: The adrenal glands appear normal. Kidneys and ureters: There is mild fullness of the left renal collecting system without patty hydronephrosis or distal ureteral obstruction. Stomach and bowel: The stomach, small bowel, and colon are well-distended and show no evidence of wall thickening, masses, or obstruction. Appendix: No evidence of appendicitis. Intraperitoneal space: There is a small volume of free fluid in the pelvis. Vasculature: The abdominal aorta and its major branches appear normal without evidence of aneurysm or stenosis. The portal and mesenteric veins are patent. Lymph nodes: There are mildly prominent but nonenlarged and nonspecific retroperitoneal nodes. Urinary bladder: Unremarkable as visualized. Reproductive: The ovaries are prominent with multiple right-sided ovarian cysts. Bones/joints: The visualized osseous structures of the abdomen and pelvis appear intact and normal for patient age with no evidence of fractures or lytic or sclerotic lesions. Soft tissues: There is a small fat containing umbilical hernia. IMPRESSION: 1. Prominent ovaries, not atypical in this age group, but further evaluation with pelvic ultrasound can be considered. 2. Hepatic steatosis. 3. Otherwise, incidental findings as above.
[2023-02-19 22:30] VITALS: BP 143/82; PULSE 69; RESP 18; O2SAT 98
[2023-02-19 23:00] VITALS: BP 142/79; PULSE 75; O2SAT 96
[2023-02-19 23:14] VITALS: BP 135/70; PULSE 72; RESP 19; TEMP 36.8; O2SAT 98
== END 2023-02-19 23:19 | disposition home or self-care (01) ==
PROVIDERS: Emergency Provider Emergency Medicine; PCP Nurse Practitioner
DX: R10.11 Right upper quadrant pain (principal); M54.9 Dorsalgia, unspecified; R11.0 Nausea; D72.829 Elevated white blood cell count, unspecified
CPT/HCPCS: 74177; 80053; 81001; 81025; 83605; 83690; 85025; 96374; 96375; 99285; J2405; Q9967

== ENCOUNTER 2023-09-03 10:05 | Outpatient (CLI) | payer BC, MEDICAID, SELFPAY ==
--- NOTE | 2023-09-03 10:08 | CT_ITS ---
FINAL REPORT TECHNIQUE: Thin section axial CT with IV contrast supplemented with 3D reconstructed MIP images. This study was performed with techniques to keep radiation doses as low as reasonably achievable, (ALARA). Individualized dose reduction techniques using automated exposure control or adjustment of mA and/or kV according to the patient's size were employed. CLINICAL HISTORY: ABN COAGULATION,ELEVATED D-DIMER COMPARISON: None FINDINGS: Pulmonary vessels enhance in normal fashion without evidence of embolism. Thoracic aorta shows no dissection or aneurysm. No pulmonary mass or infiltrate is present. There is no significant pleural effusion. There is no significant pericardial effusion. No mediastinal or hilar adenopathy is present. IMPRESSION: No evidence of pulmonary embolism Reviewed, Interpreted and Dictated by Caleb Foreman MD Transcribed by Lety Adams Authenticated and . [facility]
[2023-09-03] MEDS: 0.9 % SODIUM CHLORIDE 50 ML VIAL IV (10:40)
[2023-09-03] MEDS: IOPAMIDOL-370 (76%);100ML BOTTLE 75 ML IV (10:40)
[2023-09-03] MEDS: SODIUM CHLORIDE 0.9% 10ML SYR (RAD ONLY) 10 ML IV (10:40)
== END 2023-09-03 23:59 | disposition home or self-care (01) ==
LOC: RAD 10:06
PROVIDERS: PCP Nurse Practitioner Family; Visit Provider Nurse Practitioner Family
DX: R79.1 Abnormal coagulation profile (principal)
CPT/HCPCS: 71260; Q9967